=== PATIENT | female | born 1975 | race Caucasian/White ===

== ENCOUNTER 2018-06-12 18:27 | Emergency (ER) | payer MEDICAID ==
--- NOTE | 2018-06-12 18:49 | EDPHY ---
H & P Smoking Status: Never smoked Time Seen by Provider: 06/12/18 18:41 HPI/ROS: CHIEF COMPLAINT: Left chest wall pain HISTORY OF PRESENT ILLNESS: Patient is 42-year-old female here with left chest pain that is sharp pleuritic that started approximately 2 hr ago. She also reports shortness of breath. She denies any cough but does report over the last week she completed course of azithromycin for bronchitis. She was feeling better and then yesterday started with the pleuritic left-sided pain. She has no history of pulmonary embolism or DVT. She does take oral estrogen. REVIEW OF SYSTEMS: Constitutional: No fever, no chills. Eyes: No discharge. ENT: No sore throat. Cardiovascular: + chest pain, no palpitations. Respiratory: No cough, no shortness of breath. Gastrointestinal: No abdominal pain, no vomiting. Genitourinary: No hematuria. Musculoskeletal: No back pain. Skin: No rashes. Neurological: No headache. (Garret Simmons) Physical Exam: General Appearance: Alert and no distress. Eyes: Pupils equal and round no injection. Respiratory: Chest is nontender, lungs are clear to auscultation. Cardiac: regular rate and rhythm. Gastrointestinal: Abdomen is soft and nontender, no masses, bowel sounds normal. Musculoskeletal: Neck is supple and nontender. Extremities have full range of motion and are nontender. Skin: No rashes or lesions. (Garret Simmons) Constitutional: Initial Vital Signs Temperature (C) 36.4 C 06/12/18 18:32 Heart Rate 72 06/12/18 18:32 Respiratory Rate 16 06/12/18 18:32 Blood Pressure 94/68 L 06/12/18 18:32 O2 Sat (%) 100 06/12/18 18:32 O2 Delivery Mode Room Air Allergies/Adverse Reactions: Penicillins Allergy (Verified 06/12/18 18:31) Medical Decision Making - Diagnostics Imaging Results: Imaging Impressions Chest X-Ray 06/12/18 18:42 Impression: 1. No acute pulmonary disease. 2. Consider chest two views when the patient's medical condition permits. Procedures: [age] female here with pleuritic chest pain. D-dimer negative for pulmonary embolism. EKG and troponin negative for ACS or ischemic changes. Shows surgery clear with no evidence of pneumonia or infiltrate. This is likely pleurisy from her prior bronchitis. Patient is agreeable with plan for treatment with albuterol and pain control. Indications for return were discussed. (Garret Simmons) Other Provider: PHYSICIAN DOCUMENTATION: The patient was evaluated and managed by the Physician Product Safety Expert and myself. I have reviewed the chart and agree with the findings and plan of care as documented. In addition, I examined the patient myself at 1900. History confirmed as pleuritic left-sided chest pain, non traumatic, recent respiratory infection. Physical findings as follows: Alert, speaks in full sentences. VS reviewed. 12-lead EKG interpreted by me; official reading is in computer system. My interpretation is sinus rhythm, no ischemic changes. Appropriate for D-dimer screening for PE. D-dimer and troponin negative, very low suspicion for ACS; more likely inflammatory, discussed results with patient in person. I am the secondary supervising physician. (Ayaan Logan) - Data Points Laboratory Results: Laboratory Results 06/12/18 18:45 06/12/18 18:45 06/12/18 06/12/18 06/12/18 18:45 18:45 18:45 WBC RBC Hgb Hct MCV MCH MCHC RDW Plt Count MPV Neut % (Auto) Lymph % (Auto) Gooding % (Auto) Eos % (Auto) Baso % (Auto) Nucleat RBC Rel Count Absolute Neuts (auto) Absolute Lymphs (auto) Absolute Monos (auto) Absolute Eos (auto) Absolute Basos (auto) Absolute Nucleated RBC Immature Gran % Immature Gran # D-Dimer 0.46 ug/mLFEU ug/mLFEU (0.00-0.50) Sodium 139 mEq/L mEq/L (135-145) Potassium 3.7 mEq/L mEq/L (3.3-5.0) Chloride 105 mEq/L mEq/L (97-110) Carbon Dioxide 23 mEq/l mEq/l (22-31) Anion Gap 11 mEq/L mEq/L (8-16) BUN 14 mg/dL mg/dL (7-23) Creatinine 0.7 mg/dL mg/dL (0.6-1.0) Estimated GFR > 60 Glucose 87 mg/dL mg/dL (70-100) Calcium 9.5 mg/dL mg/dL (8.5-10.4) Total Bilirubin 0.5 mg/dL mg/dL (0.1-1.4) AST 47 IU/L H IU/L (14-46) ALT 57 IU/L H IU/L (9-52) Alkaline Phosphatase 77 IU/L IU/L (38-126) POC Troponin I 0.01 ng/mL ng/mL (0.00-0.08) Total Protein 6.8 g/dL g/dL (6.3-8.2) Albumin 4.2 g/dL g/dL (3.5-5.0) Lipase 200 IU/L IU/L (23-300) 06/12/18 18:45 WBC 12.18 10^3/uL H 10^3/uL (3.80-9.50) RBC 4.20 10^6/uL 10^6/uL (4.18-5.33) Hgb 13.9 g/dL g/dL (12.6-16.3) Hct 40.3 % % (38.0-47.0) MCV 96.0 fL fL (81.5-99.8) MCH 33.1 pg pg (27.9-34.1) MCHC 34.5 g/dL g/dL (32.4-36.7) RDW 13.8 % % (11.5-15.2) Plt Count 407 10^3/uL H 10^3/uL (150-400) MPV 9.6 fL fL (8.7-11.7) Neut % (Auto) 67.5 % % (39.3-74.2) Lymph % (Auto) 24.0 % % (15.0-45.0) Gooding % (Auto) 5.3 % % (4.5-13.0) Eos % (Auto) 2.5 % % (0.6-7.6) Baso % (Auto) 0.4 % % (0.3-1.7) Nucleat RBC Rel Count 0.0 % % (0.0-0.2) Absolute Neuts (auto) 8.22 10^3/uL H 10^3/uL (1.70-6.50) Absolute Lymphs (auto) 2.92 10^3/uL 10^3/uL (1.00-3.00) Absolute Monos (auto) 0.64 10^3/uL 10^3/uL (0.30-0.80) Absolute Eos (auto) 0.31 10^3/uL 10^3/uL (0.03-0.40) Absolute Basos (auto) 0.05 10^3/uL 10^3/uL (0.02-0.10) Absolute Nucleated RBC 0.00 10^3/uL 10^3/uL (0-0.01) Immature Gran % 0.3 % % (0.0-1.1) Immature Gran # 0.04 10^3/uL 10^3/uL (0.00-0.10) D-Dimer Sodium Potassium Chloride Carbon Dioxide Anion Gap BUN Creatinine Estimated GFR Glucose Calcium Total Bilirubin AST ALT Alkaline Phosphatase POC Troponin I Total Protein Albumin Lipase Medications Given: Discontinued Medications Aspirin (Aspirin) 162 mg PO EDNOW ONE Stop: 06/12/18 19:14 Last Admin: 06/12/18 19:40 Dose: 162 mg Ketorolac Tromethamine (Toradol) 30 mg IM EDNOW ONE Stop: 06/12/18 19:56 Last Admin: 06/12/18 20:18 Dose: Not Given Ketorolac Tromethamine (Toradol) 15 mg IVP EDNOW ONE Stop: 06/12/18 20:19 Last Admin: 06/12/18 20:20 Dose: 15 mg Point of Care Test Results: Chemistry 06/12/18 18:45 POC Troponin I 0.01 ng/mL ng/mL (0.00-0.08) Departure - Departure Disposition: Home, Routine, Self-Care Clinical Impression: Chest pain, Pleurisy Condition: Good Instructions: Chest Pain (ED), Pleurisy (ED) Additional Instructions: Please do 2 puffs of albuterol every 4-6 hours for the next 2 days. 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 Return to the ER for any worsening symptoms. Referrals: Tracy Morley MD [Primary Care Provider] - As per Instructions
--- NOTE | 2018-06-12 18:51 | CPEKG ---
Test Reason : OPEN Blood Pressure : / mmHG Vent. Rate : 062 BPM Atrial Rate : 061 BPM P-R Int : 137 ms QRS Dur : 087 ms QT Int : 436 ms P-R-T Axes : 047 008 021 degrees QTc Int : 443 ms Sinus rhythm Confirmed by Ayaan Logan ([id number]) on 06/12/2018 6:50:51 PM Referred By: Confirmed By:Ayaan Logan
[2018-06-12 18:55] LABS: PLATELET COUNT 407 10^3/uL (150-400)
[2018-06-12] MEDS ORDERED: ASPIRIN 81 MG CHEWABLE TAB PO ONE (19:13)
[2018-06-12] MEDS ORDERED: KETOROLAC 30 MG/1 ML SDV IM ONE (19:55)
[2018-06-12] MEDS ORDERED: KETOROLAC 15 MG/1 ML SDV IVP ONE (20:18)
[2018-06-12 20:22] VITALS: BP 98/63
== END 2018-06-12 20:22 | disposition home or self-care (01) ==
DX: R07.89 Other chest pain (principal); R09.1 Pleurisy
CPT/HCPCS: 84484-PO; 96374; J1885

== ENCOUNTER → 2018-11-30 | Outpatient (CLI) | payer MEDICAID | LOC: FIMAGING 14:50 | PROVIDERS: ATTEND Registered Nurse | DX: R93.89 Abnormal findings on diagnostic imaging of other specified body structures (principal); N92.0 Excessive and frequent menstruation with regular cycle ==

== ENCOUNTER 2019-02-12 11:00 | Day surgery (SDC) | payer MEDICAID ==
--- NOTE | 2019-01-13 12:32 | GHP ---
[f rep st] PREOP HISTORY AND PHYSICAL DATE OF ADMISSION: 01/28/2019 DATE OF SURGERY: Will be 01/28/2019. PREOPERATIVE DIAGNOSES: Menorrhagia and endometrial polyp. SURGERY TO BE PERFORMED: Hysteroscopy, dilation and curettage, polypectomy with morcellator and inse rtion of a Mirena IUD. SURGEON: Dr. Marion Smart. HISTORY OF PRESENT ILLNESS: Teresa is a 43-year-old, 1, para 1-0-0-1, who presented originally in November of 2018 complaining of dramatically increased menstrual cycles. Her medical history is sig nificant for a gastric bypass which was performed in November of 2016 and after that, she has lost 116 p ounds since surgery. She had complications from her procedure and had to have multiple repeat abdomi nal surgeries and GI surgeries due to complications, pyloroplasty and cholecystectomy and then follow up to stretch her stomach twice. Prior to her weight loss and her GI complication, she had had flavio l cycles in her life, monthly moderate flow. After these complications, her flow has increased drama tically, bleeding heavily for about 5-7 days, large clots causing significant dysmenorrhea, difficult to work, difficult to function. She is limited in her ibuprofen that she can take for her dysmenorr hea because of her gastric bypass and has been having dramatic symptoms. She has multiple flooding a ccidents and significant cramping and clotting. Her primary care ordered an ultrasound. The ultraso und revealed a thickened endometrial stripe 12 mm with indistinct margins. Had normal ovaries. I sa w her for evaluation and did an endometrial biopsy and endometrial biopsy revealed segments of benign endometrial polyps, no atypia or malignancy. Patient has continued to have heavy cycles during her workup, and we discussed treatment options. Treatment options will be medical management with oral c ontraceptive pills or Mirena IUD versus surgical management, hysteroscopy, D and C, and polypectomy p vickie or minus intraoperative IUD or an endometrial ablation. Patient has not fully confirmed that she does not want to have another baby and so she is reluctant to have a tubal and an endometrial ablati on at this time, but she would like to avoid another polyp or avoid heavy periods, so the decision wa s made to proceed with hysteroscopy, D and C, polypectomy, and insertion of Mirena IUD, and then she can have time to assess her long-term fertility options. 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 She had normal Paps since. Most recent Pap was with her PCP. She had used the control pill in the past and stopped in preparation for bariatric surgery. They were open to conceive so she was no t using control. PAST OBSTETRICAL HISTORY: In 1994 she had a vaginal delivery of a viable female, 9 pounds 1 ounce, n o complications and that is her only . PAST MEDICAL HISTORY: Morbid obesity, status post gastric bypass with 116-pound weight loss. She harrison s significant gastroesophageal reflux disease and pyloric stenosis since surgery. She also has asthm a, was hospitalized for diverticulitis, has migraines and has depression and anxiety and chronic anem ia. SURGICAL HISTORY: Pyloroplasty in 2016 and she was diagnosed with pyloric stenosis as a baby. Also 2016, she had a cholecystectomy. In 2017, on December 19, she had her gastric bypass and then she had to have followup surgeries twice to stretch the drainage hole from her pouch. No other surgeries. ALLERGIES: Penicillin and iodine and shellfish, she gets anaphylaxis. Sesame seeds give her hives. CURRENT MEDICATIONS: She is on Prozac 40 mg daily, lamotrigine 100 mg daily, gastric bypass vitamins daily, and calcium daily. FAMILY HISTORY: Her father at age 72 of an aneurysm. Both parents were alcoholics, had depress ion and anxiety. Father has arthritis. She had a half sister with uterine cancer diagnosed at age 5 6. Her mother has Crohn disease, thyroid disease, depression, anxiety, alcoholism. Maternal grandmo ther had osteoporosis. Paternal grandfather had heart disease. Maternal grandmother had stroke. Mo uzma has COPD. She had a sister who at age 59 of heart failure. SOCIAL HISTORY: She is . She is in a long-term relationship for many years. She denies toba strategic account executive, alcohol use. She uses marijuana edibles a couple times a week. No other substances. She drink s caffeine 5 times a day. Walking daily. 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 She is o n a bariatric diet. REVIEW OF SYSTEMS: Negative except for pertinent positives as above in HPI and past medical history. OBJECTIVE: VITAL SIGNS: Weight is 173, blood pressure is 112/62, giving her a BMI of 28. GENERAL: She is a well-developed, well-nourished white female in no acute distress. LUNGS: Clear to auscult ation bilaterally. HEART: Regular rate and rhythm. No murmur. ABDOMEN: Soft, nontender, nondiste nded. Normal bowel sounds. PELVIC: Normal external genitalia. Normal parous cervix. Uterus is an teverted, anteflexed, mobile, nontender. No masses. ASSESSMENT AND PLAN: 43-year-old, 1, para 1-0-0-1, with significant menorrhagia and endometr ial polyp. Patient wishes to have a hysteroscopy, D and C polypectomy with morcellator and insertion of Mirena IUD. She was consented for the procedure today. She understands the risks and benefits, the risks including bleeding, infection, damage to the uterus including possible risk of perforation damage to other organs if perforation were to occur, need for additional procedures and incomplete tr eatment of the of the bleeding with the Mirena IUD. /[id number]/MODL
--- NOTE | 2019-02-12 09:28 | PDANEPAE ---
ANE Past Medical History - Cardiovascular History Hx Hypertension: No Hx Arrhythmias: No Hx Chest Pain: No Hx Coronary Artery / Peripheral Vascular Disease: No Hx CHF / Valvular Disease: No Hx Palpitations: No - Pulmonary History Hx COPD: No Hx Asthma/Reactive Airway Disease: No Hx Recent Upper Respiratory Infection: No Hx Oxygen in Use at Home: No Hx Sleep Apnea: No Sleep Apnea Screening Result - Last Documented: Negative - Neurologic History Hx Cerebrovascular Accident: No Hx Seizures: No Hx Dementia: No - Endocrine History Hx Diabetes: No Obesity: no - Renal History Hx Renal Disorders: No - Liver History Hx Hepatic Disorders: No - Neurological & Psychiatric Hx Hx Neurological and Psychiatric Disorders: Yes Neurological / Psychiatric History Comment: depression - Cancer History Hx Cancer: No - Congenital Disorder History Hx Congenital Disorders: No - GI History Hx Gastrointestinal Disorders: Yes Gastrointestinal History Comment: hx of gastric bypass - Other Health History Other Health History: wears glasses - Chronic Pain History Chronic Pain: No - Surgical History Prior Surgeries: pyloroplasty 2014. guille 06/2015. gastric bypass surgery ANE Review of Systems Review of Systems: - Exercise capacity METS (RN): 4 METS ANE Patient History - Allergies Allergies/Adverse Reactions: Penicillins Allergy (Verified 01/25/19 16:43) n/v - Home Medications Home Medications: Herbals/Supplements -Info Only 01/25/19 [Last Taken Unknown] Lamotrigine 01/25/19 [Last Taken Unknown] Prozac 10 MG (*) 01/25/19 [Last Taken Unknown] - Smoking Hx Smoking Status: Never smoked - Family Anes Hx Family Hx Anesthesia Complications: none ANE Labs/Vital Signs - Vital Signs Height: 165.1 cm Weight: 77.111 kg ANE Anesthesia Plan Anesthesia Plan: GA w LMA Total IV Anesthesia: No
[~2019-02-12 11:00] MED LIST: MIDAZOLAM 2 MG/2 ML VIAL IVP ONE
[2019-02-12] MEDS ORDERED: LR 1,000 ML IV ONE (11:08)
[2019-02-12] MEDS ORDERED: SILVER NITRATE APPLICATOR 1 APPL TP ONE (12:22)
--- NOTE | 2019-02-12 12:22 | PDHPUP ---
History & Physical Update H&P update statement: This history and physical update is based on an assessment of the patient which was completed after admission or registration (within 24 hours), but prior to the surgery/procedure. H&P update: H&P reviewed & patient examined, no change in patient's condition since H&P completed
[2019-02-12] MEDS ORDERED: MIDAZOLAM 2 MG/2 ML VIAL ONE (12:49)
--- NOTE | 2019-02-12 12:56 | PDANEPAE ---
ANE Past Medical History - Cardiovascular History Hx Hypertension: No Hx Arrhythmias: No Hx Chest Pain: No Hx Coronary Artery / Peripheral Vascular Disease: No Hx CHF / Valvular Disease: No Hx Palpitations: No - Pulmonary History Hx COPD: No Hx Asthma/Reactive Airway Disease: No Hx Recent Upper Respiratory Infection: No Hx Oxygen in Use at Home: No Hx Sleep Apnea: No Sleep Apnea Screening Result - Last Documented: Negative - Neurologic History Hx Cerebrovascular Accident: No Hx Seizures: No Hx Dementia: No - Endocrine History Hx Diabetes: No Obesity: no - Renal History Hx Renal Disorders: No - Liver History Hx Hepatic Disorders: No - Neurological & Psychiatric Hx Hx Neurological and Psychiatric Disorders: Yes Neurological / Psychiatric History Comment: depression - Cancer History Hx Cancer: No - Congenital Disorder History Hx Congenital Disorders: No - GI History Hx Gastrointestinal Disorders: Yes Gastrointestinal History Comment: hx of gastric bypass - Other Health History Other Health History: wears glasses - Chronic Pain History Chronic Pain: No - Surgical History Prior Surgeries: pyloroplasty 2014. guille 06/2015. gastric bypass surgery ANE Review of Systems Review of Systems: - Exercise capacity METS (RN): 4 METS ANE Patient History - Allergies Allergies/Adverse Reactions: Penicillins Allergy (Verified 01/25/19 16:43) n/v shellfish derived Allergy (Verified 02/12/19 11:29) Anaphylaxis - Home Medications Home Medications: Herbals/Supplements -Info Only 01/25/19 [Last Taken 02/11/19] Lamotrigine 01/25/19 [Last Taken 02/11/19] Prozac 10 MG (*) 01/25/19 [Last Taken 02/11/19] - NPO status NPO Since - Liquids (Date): 02/12/19 NPO Since - Liquids (Time): 09:15 NPO Since - Solids (Date): 02/11/19 NPO Since - Solids (Time): 23:00 - Smoking Hx Smoking Status: Never smoked - Family Anes Hx Family Hx Anesthesia Complications: none ANE Labs/Vital Signs - Vital Signs Blood Pressure: 94/59 Heart Rate: 61 Respiratory Rate: 18 O2 Sat (%): 98 Height: 165.1 cm Weight: 77.111 kg ANE Physical Exam - Airway Neck exam: FROM Mallampati Score: Class 2 Mouth exam: normal dental/mouth exam - Pulmonary Pulmonary: no respiratory distress - Cardiovascular Cardiovascular: regular rate and rhythym - ASA Status ASA Status: II ANE Anesthesia Plan Anesthesia Plan: GA w LMA
[2019-02-12] MEDS ORDERED: PROPOFOL 200 MG/20 ML VIAL ONE (12:57)
[2019-02-12] MEDS ORDERED: fentaNYL 100 MCG/2 ML INJ ONE (12:57)
[2019-02-12] MEDS ORDERED: ONDANSETRON 4 MG/2 ML VIAL IVP PRN (13:08)
[2019-02-12] MEDS ORDERED: ACETAMINOPHEN 500 MG TAB PO PRN (13:08)
[2019-02-12] MEDS ORDERED: NALOXONE HCL 0.4 MG/ML INJ IVP PRN (13:08)
[2019-02-12] MEDS ORDERED: oxyCODONE IR 5 MG TAB PO PRN (13:08)
[2019-02-12] MEDS ORDERED: HYDROCODONE/APAP 5/325 TAB PO PRN (13:08)
[2019-02-12] MEDS ORDERED: ALBUTEROL 3 ML DEYVIAL IH PRN (13:08)
[2019-02-12] MEDS ORDERED: fentaNYL 100 MCG/2 ML INJ IVP PRN (13:08)
[2019-02-12] MEDS ORDERED: traMADol 50 MG TAB PO PRN (13:37)
--- NOTE | 2019-02-12 13:40 | POSTOPPROG ---
Post Op Note Date of Operation: 02/12/19 Surgeon: Marion Smart Anesthesiologist: Saul Clemens Anesthesia: GET(General Endotracheal) (L), LMA Pre-op Diagnosis: Menorrhagia, endometrial polyp Post-op Diagnosis: same Procedure: Hysteroscopy D and C, polypectomy, insertion of Mirena IUD Findings: endometrial polyps Inf/Abcess present in the surg proc area at time of surgery?: No Depth: Organ Space EBL: Minimal Total fluids administered: 500 Complications: none Bowel Protocol: No Clean Closure Performed: N/A Specimen(s): endometrial curettings
--- NOTE | 2019-02-12 13:44 | POSTANESTH ---
Post Anesthetic Evaluation Cardiovascular Status: Similar to Pre-Op Cond Respiratory Status: Similar to Pre-op Cond. Level of Consciousness/Mental Status: Can Participate in Eval, Mildly Sleepy, Arousable Pain Control: Adequate, Prn Tx Ordered Nausea/Vomiting Control: Adequate, Prn Tx Ordered Complications Possibly Related to Anesthesia: None Noted
--- NOTE | 2019-02-12 14:18 | GOP ---
[f rep st] OPERATIVE REPORT DATE OF OPERATION: 02/12/2019 SURGEON: Marion Smart MD ANESTHESIA: General anesthesia with an LMA. ANESTHESIOLOGIST: Dr. Mert Clemens. PREOPERATIVE DIAGNOSIS: Menorrhagia and endometrial polyp. POSTOPERATIVE DIAGNOSIS: Menorrhagia and endometrial polyp. PROCEDURE PERFORMED: Hysteroscopy, dilation and curettage, polypectomy with morcellator and insertio n of a Mirena IUD. FINDINGS: ESTIMATED BLOOD LOSS: Estimated blood loss for the procedure was less than 10 mL. INDICATIONS: The patient is a 43-year-old, 1, para 1-0-0-1, who originally presented in [facility] of this year complaining of dramatically increased menstrual cycles. Her medical history is signif icant for gastric bypass surgery performed in November of 2016, and she has lost 116 pounds since that s urgery. She had multiple complications requiring multiple GI procedures after her bypass surgery and with that, she had increase in her menstrual symptoms. Ultrasound revealed a thickened endometrium, which was 12 mm with indistinct margins and normal ovaries. As I saw her for an evaluation, she had an endometrial biopsy which revealed segments of benign endometrial polyps. No atypia or malignancy . She continues to have heavy cycles. The patient is not certain that she does not want to retain h er future fertility. However, she wants to have improvement of her periods now. We counseled on marlyn atment options and my suggestion was a hysteroscopy, D and C, and polypectomy. The patient wants to have contraception now and improvement in her periods, so we decided to do the Mirena IUD, which can be reversed if she wants to conceive. She was consented for the procedure. She understood the risks and benefits, the risks including bleeding, infection, damage to the uterus including possible risk of perforation, damage to other organs if perforation was to occur, risk of incomplete treatment of h er bleeding and needing additional procedures at a later time. She understood these risks and benefi ts and agreed to proceed. DESCRIPTION OF PROCEDURE: The patient was taken to the operating room where she was placed under gen eral anesthesia without difficulty and an LMA was placed. She was placed in the dorsal lithotomy pos ition and her bladder had recently been emptied. After a WHO time-out was performed, an open-sided s peculum was placed in the vagina and a Ennis tenaculum was used to grasp the anterior lip of the cer vix. The uterus sounded to 9 cm. The cervix was then progressively dilated with Huff dilators to a #6.5. The operative hysteroscope was then gently advanced from the cervix to the fundus, and inspec tion of the endometrial cavity revealed thickened endometrium, multiple areas of endometrial polyps. The polyp blade was then inserted through the operative channel. A window lock was performed and po lypectomy was performed throughout the entire endometrial cavity, removal of all the redundant tissue until the open cavity was visualized and the tubal ostia were visualized without difficulty. Hyster oscope was then removed and the Mirena IUD was seated at 9 cm length, engaged at the fundus and the s trings were cut to 2 cm. Tenaculum was removed and there were no areas of bleeding and the speculum was removed. The patient tolerated the procedure well. Sponge, lap, needle and instrument counts we re correct x2. The patient went to the recovery room in good condition. URINE OUTPUT: Not measured. IV FLUIDS: 500 mL and hysteroscope fluid deficit was approximately 100 mL. /[id number]/MODL
[2019-02-12 14:55] VITALS: BP 106/76
== END 2019-02-12 14:53 | disposition home or self-care (01) ==
LOC: FSGY 11:00
PROVIDERS: ATTEND Obstetrics & Gynecology
DX: N92.0 Excessive and frequent menstruation with regular cycle (principal); N84.0 Polyp of corpus uteri; Z98.84 Bariatric surgery status; K21.9 Gastro-esophageal reflux disease without esophagitis; J45.909 Unspecified asthma, uncomplicated; F32.9 Major depressive disorder, single episode, unspecified; F41.9 Anxiety disorder, unspecified; D64.9 Anemia, unspecified
CPT/HCPCS: 58300; 58558; C1782; J2250; J2704; J3010